=== PATIENT | female | born 1990 | race Caucasian/White ===

== ENCOUNTER 2019-09-29 11:30 | Inpatient (IN) | payer MEDICAID, SELFPAY ==
[2016-10-02 12:30] VITALS: BMI 39.6
[2019-09-29] VITALS (35 sets, daily range): BP systolic 117–184; BP diastolic 56–95; PULSE 66–117; RESP 16; TEMP 36.1–37.3; O2SAT 93–100; BMI 40.5
[2019-09-29] MEDS: proMETHazine 25 MG/ML Syringe 12.5 MG IM (03:23)
[2019-09-29] MEDS: morphine 10 MG/ML Syringe 5 MG IM (03:23)
[2019-09-29] MEDS: Lactated Ringers 1,000 ML 50 ML IV (11:30)
[2019-09-29] MEDS: Lactated Ringers 500 ML 999 ML IV ×2 (11:32→18:09)
[2019-09-29 12:06] LABS: Absolute Lymphocyte Count 2.17 X10^3/uL (0.83-4.51); Absolute Neutrophil Count 13.6 X10^3/uL (2.0-7.7); Basophil# 0.04 X10^3/uL; Basophil% 0.2 % (0-1); Eosinophil# 0.04 X10^3/uL; Eosinophils% 0.2 % (0-5); Hemoglobin 13.2 g/dL (12.0-15.0); Lymphocyte # 2.17 X10^3/ul (4.0); Lymphocyte % 12.9 % (19-41); Mean Corp Hgb Conc 32.2 g/dL (32-36); Mean Corpuscular Hgb 29.2 pg (27.0-32.0); Mean Corpuscular Volume 90.7 fL (81-99); Mean Platelet Vol. 9.8 fl (6.2-12.0); Monocyte# 0.88 X10^3/uL; Monocyte% 5.2 % (0-10); NRBC Flagged by Analyzer 0 % (0-5); Neutrophil # 13.62 X10^3/uL (2.7-7.7); Platelet Count 234 K/mm3 (150-450); RBC Distribution Width SD 46.2 fl (35.1-43.9); Red Blood Count 4.52 M/mm3 (4.2-5.4); White Blood Count 16.8 K/mm3 (4.4-11.0)
[2019-09-29 12:56] LABS: Amphetamine Urine VISTA NEGATIVE (<1000 ng/mL); Barbiturate Urine VISTA NEGATIVE (< 200 ng/mL); Benzodiazepine Urine VISTA NEGATIVE (< 200 ng/mL); Cocaine Urine VISTA NEGATIVE (< 300 ng/mL); Ecstacy Urine VISTA NEGATIVE (< 500 ng/mL); Methadone Urine VISTA NEGATIVE (< 300 ng/mL); PCP Urine VISTA NEGATIVE (< 25 ng/mL); THC Urine VISTA POSITIVE (< 50 ng/mL); Vista UDS pH Range 6
[2019-09-29] MEDS: fentaNYL-bupivacaine (epidural) 100 ML BAG EPIDURAL ×2 (12:58→17:26)
--- NOTE | 2019-09-29 13:14 | HP.PCM_ITS ---
History Date of Admission: 09/29/19 Final MARY: 09/29/19 Gestational age: 40 Weeks and 0 Days History of this : This is a 29 year-old, G [], P [], at 40 weeks gestational age. Allergies No Known Allergies Allergy (Verified 09/29/19 03:09) Home Medications: Home Medications Tablet 1 tab PO DAILY 09/29/19 Zoloft 50 mg PO DAILY 09/29/19 Smoking Status: Light Smoker (<10/day) Substance Use Type: Marijuana Number of Fetus(es): 1 NST - FHR Rate Baby A Baseline: 140 Variability:: Moderate Accelerations:: 15 x 15 NST Reactive:: Yes Uterine Activity:: Q4-5 minutes History Past Pregnancies: Past Pregnancies Delivery Date Name GA/ Weeks Outcome Route Wt Sex Labor Length Anesthesia Delivery Location Provider FOB Labs: See [facility] Physical Exam Vitals: Vital Signs Temp Pulse BP Pulse Ox 98.4 F 94 165/88 H 97 09/29/19 03:53 09/29/19 13:10 09/29/19 13:10 09/29/19 12:48 General: Alert, Oriented x3 Abdomen: Soft, Non Tender, Non-Distended, Gravid Neurological: Cranial nerves II-XII grossly intact FAST FOOD DELIVERY DRIVER: Normal external genitalia Estimated gestational size: Appropriate for gestational size Presentation: Cephalic Cervix Dilation (cm): 5 - AROM clear fluid, FSE & IUPC placed Station: -2 Effacement (%): 90 Assessment/Plan This is a 29 year-old, G1, P0, at 40 weeks gestational age. Admit to L&D COVID testing pending Expectant management GBS negative Pain - comfortable with epidural EFW - less than 4500g, patient with adequate pelvis Routine care
[2019-09-29] MEDS: Oxytocin 30 units/NS 500 ml 30 UNITS/500 ML IV.SOLN IV (15:37)
[2019-09-29] MEDS: Lactated Ringers 1,000 ML 200 ML IV (17:27)
[2019-09-29] MEDS: Ondansetron 4 MG/2 ML Vial IV (19:23)
[2019-09-29] MEDS: Oxytocin 30 units/NS 500 ml 30 UNITS/500 ML IV.SOLN 334 UNITS IV (19:55)
--- NOTE | 2019-09-29 20:15 | PCM.OPRPT ---
Vaginal Delivery Maternal Presentation: Active Labor Amniotic Membrane Rupture Type: Artificial Amniotic Fluid Description: Clear Final MARY: 09/29/19 Gestational age: 40 Weeks and 0 Days Date of Procedure: 09/29/19 Pre-Operative Diagnosis: Labor Post-Operative Diagnosis: Labor Surgery/ Procedure Performed: Spontaneous Vaginal Delivery Type of Anesthesia: Epidural Description of Procedure: Patient prepped & draped in stirrups when c/c/+2. She pushed to deliver the head. head was gently guided to allow delivery of anterior and posterior shoulders. No excess traction placed on the head. Body delivered and placed on maternal abdomen. 3VC clamped & cut in delayed fashion. Placenta delivered with gentle traction. Good uterine tone obtained. Presentation: GE Placental Delivery Description: Spontaneous Placenta Disposition: [facility] Cord Vessel Description: 3 Vessels Cord Entanglement: None Estimated Blood Loss: 350ml Infant A gender: Male - Manny (1 minute): 8 (5 minute): 9 Episiotomy Description: None Laceration: 1st degree - vaginal (bilateral) - repaired with 3-0 vicryl Medications given after delivery: IV Pitocin Complications: None
[2019-09-29] MEDS: 0.9% Saline Lock 10 ML Syringe IV (22:38)
[2019-09-30 00:12] VITALS: BP 137/78; PULSE 106; RESP 16; TEMP 36.2
[2019-09-30 03:07] VITALS: BP 127/72; PULSE 86; RESP 16; TEMP 36.1
[2019-09-30 07:30] VITALS: BP 105/63; PULSE 84; RESP 16; TEMP 36.2
[2019-09-30] MEDS: Ibuprofen 600 MG Tablet PO ×2 (07:50→20:03)
--- NOTE | 2019-09-30 10:22 | PCM.PN.BLA ---
Progress Note Attempted to see patient on unit but patient was off unit outside at this time. STROKE Vital Signs/Narrative: Vital Signs Temp Pulse Resp BP 09/30/19 07:30 97.2 F L 84 16 105/63
[2019-09-30 12:33] VITALS: BP 124/77; PULSE 74; RESP 18; TEMP 36.1; O2SAT 100
[2019-09-30 15:40] VITALS: BP 126/75; PULSE 80; RESP 16; TEMP 36.2; O2SAT 99
--- NOTE | 2019-09-30 16:30 | CASEMGMT ---
Social Work Assessment Labor and Delivery Unit Patient Address: [address] [place] [address] [address], [place] [address] Phone number: [phone] Date of Referral: 09.29.2019 Time of Referral: 2337 Referred By: Dr. Vitale Date of Intervention: 09.30.2019 Time of Intervention: 163 Reason for Referral: maternal use of THC in . History obtained from: medical records and mother of baby (MOB) Angi Naqvi Household composition: MOB lives with reported father of baby (FOB) Ferny Carreno. MOB reports home situation is safe and adequate. MOB plans for baby to return to this home at time of discharge. Patient's parent/guardian status: MOB reports involvement with FOB for a year. MOB denies any form of abuse in this relationship. Report is the first child for both. baby, Manny Carreno, was born on 09.29.2019. Medical History: MOB is G1, P0 to 1 after delivering Manny. MOB reports thought could not have children so was happy when conceived. MOB started care at 9 weeks and then gap in care from 9 to 19 weeks, regular after 19 weeks. Baby born at 40 weeks gestation, 7 pounds 5 ounces, Apgars 8 and 9 at 1 and 5 minutes of life. Educational Status: MOB's highest level of education completed 11th grade, per medical record. No reported issues with reading, writing, or learning comprehension. Financial Status: FOB works fulltime at [employer] and MOB was working at [employer]. MOB reports plan to eventually return to work. At this time finances are reported as adequate. Infant Supplies: MOB reports to have needed supplies including car seat, crib, pack-n-play, clothing, diapers, and wipes. Has a breast pump. Is planning to breastfeed infant. Childcare/Caregiver(s): MOB and then help from FOB and family. Transportation: No issues reported. Programs/Agencies Involved: MOB has WIC and then food and medical through [facility]. MOB denies any other agency involvement. Declines [facility] referrals. Children Services/Legal Issues: None reported. Behavioral Health Issues: Mental Health History: MOB reports history of depression and some anxiety. MOB reports people have thought MOB had bipolar disorder in the past, though not officially diagnoses. MOB reports has history of having high and low moods. MOB denies any history of thoughts, plans, intent or actions related to suicide. No indicates of thoughts of harm to others. MOB reports started counseling with Alina Miller at [facility] in [place] during this , and then started with a psychiatrist for medication as same agency. MOB is currently on Zoloft and reports to feel this is going well. Substance Use History: MOB admits to use of marijuana in . Reports that quite after learning of and then had an argument with the FOB about a month ago. At the time of the argument MOB reports was feeling stressed and used marijuana again. MOB smoked tobacco during . Denies alcohol use in but does drink socially. 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 Denies history of other illicit drug use or abuse. Family History: Reports has had family members complete suicide though did not go into more detail. Reports both her parents, who are in [place], are using meth and have long history of substance use issues cine MOB was a child. Drug Screens: MOB with positive drug screens for marijuana on 03.04.2019 and 08.18.2019. on 09.29.2019 positive for marijuana and opiates. Per discussion with nursing the patient was reportedly given a shot of morphine prior to lab specimen collection. Baby's urine positive for marijuana only. Meconium pending. Family/Social Stressors: Maternal marijuana use in , with baby positive at delivery. MOB reports to be feeling badly due to the baby not having a choice whether to put marijuana into his body, so upset with choices in baby's exposure. Support Systems: MOB reports ANKUR is a good support, ANKUR's uncle's , and then MOB's best girlfriend named Arlin. Depression/Shaken Baby/Safe Sleeping: MOB able to give appropriate responses to shaken baby and safe sleeping. Educated to depression, risk factors and importance of following up with established mental health support. ASSESSMENT: Met with MOB in room. MOB pleasant and cooperative with social work visit. Held appropriate eye contact, appropriate affect. MOB reports to have needed baby supplies for baby and will have adequate help with baby at home going. MOB reports to feel a connection to the baby, smiled at baby when talking about the baby, and gazed at the baby intermittently. MOB did become tearful when topic of substance use occurred. MOB reported plan to abstain from further substance use, plan to stay on antidepressant medications, and also call counselor if feelings of depression arise. MOB educated to need to call children services and that a worker will be making contact with MOB, likely at home. Answered MOB's questions, and offered emotional support. Encouraged abstinence of substances. Safe Plan of Care for related to substance use: Abstain from substances, and should marijuana become and options again in the future would have baby to go the grandmothers' house to be cared for. MOB does report FOB uses marijuana, or has in the past, and has been doing this outside of the home while MOB was . PLAN: MOB and baby to home. Plan to call [facility] Children Services related to substance exposed infant. MOB has been given depression packet and [facility] resource packet for home going. -JASS Polk, CONSULTANTS INTERN
[2019-09-30 21:01] VITALS: BP 113/69; PULSE 75; RESP 16; TEMP 36.4
[2019-09-30] MEDS: Senna/Docusate Sodium 1 Tablet PO (21:07)
[2019-10-01 01:18] VITALS: BP 124/81; PULSE 87; RESP 16; TEMP 36.1
--- NOTE | 2019-10-01 07:49 | PCM.PN.OB ---
Subjective: Patient seen at bedside. Feeling great. Denies pain. Requesting to be discharged home A.S.A.P. Breast and bottle feeding infant without difficulty. Lochia has decreased. - Physical Exam Vitals/I&O's: Vital Signs Temp Pulse Resp BP Pulse Ox 97.0 F L 87 16 124/81 H 99 10/01/19 01:18 10/01/19 01:18 10/01/19 01:18 10/01/19 01:18 09/30/19 15:40 Oxygen Delivery Method Room Air Weight: 236 lb Body Mass Index (BMI) 40.5 Intake and Output for Last 24 Hours 09/29/19 09/30/19 10/01/19 23:59 23:59 23:59 Intake Total 3155.79 / 3155.79 Output Total 850 / 850 Balance 2305.79 / 2305.79 General: Alert, Cooperative Lungs: Normal air movement Cardiovascular: Regular rate Abdomen: Soft, Non Tender, Non-Distended Skin: No rashes Musculoskeletal: No Tenderness to Palpation of Joints or Extremities Neurological: Cranial nerves II-XII grossly intact Psych/Mental Status: Normal Affect, Appropriate Current Medications Acetaminophen (Tylenol) 1,000 mg PO Q8H PRN PRN PRN Reason: Pain Score 1-3/10 Bisacodyl (Dulcolax) 10 mg RECTAL UD PRN PRN Reason: If no BM Dibucaine (Dibucaine) 1 applic TOPICAL TID PRN PRN; Protocol PRN Reason: Discomfort Hydrocortisone (Hytone) 1 applic TOPICAL TID PRN PRN; Protocol PRN Reason: Discomfort Ibuprofen (Motrin) 600 mg PO Q6H PRN PRN PRN Reason: Pain Score 1-3/10 Last Admin: 09/30/19 20:03 Dose: 600 mg Documented by: Methylergonovine Maleate (Methergine) 0.2 mg IM X1 PRN PRN Reason: Excess bleeding/uterine atony Ondansetron HCl (Zofran) 4 mg IV Q4H PRN PRN PRN Reason: Nausea Oxycodone HCl (Oxyir) 5 - 10 mg PO Q4H PRN PRN PRN Reason: Pain Score 4-10/10 Senna/Docusate Sodium (Senokot-S, Macy-Colace) 1 - 2 tablet PO DAILY PRN PRN PRN Reason: Constipation Last Admin: 09/30/19 21:07 Dose: 2 tablet Documented by: Simethicone (Mylicon) 80 mg PO PCHS PRN PRN Reason: Indigestion/Stomach pain Sodium Chloride () 5 - 15 ml IV UD PRN PRN Reason: SALINE FLUSH Last Admin: 09/29/19 22:38 Dose: 10 ml Documented by: Medical Necessity - Tobacco Use Smoking Status: Light Smoker (<10/day) Assessment/Plan PPD #2 Discharge home with no restrictions, patient to follow up in 6 weeks
--- NOTE | 2019-10-01 07:54 | DCINST_ITS ---
Discharge Diet: No Restrictions May resume sexual activity in: 6 weeks Weight Bearing Status: Weight bearing as tolerated Additional Instructions: If you experience any of the following, contact your healthcare provider. * Bleeding that soaks a pad every hour for 2 hours * Fever 100.4 or higher * Unrelieved incision or abdominal pain * Swelling, redness, discharge or bleeding from your incision or episiotomy site * Your incision begins to separate * Problems urinating (including inability to urinate or burning while urinating). * Visual changes * Severe headache * Flu-like symptoms * Pain or redness in one of both of your breasts * Pain, warmth, tenderness or swelling in your legs, especially the calf area * Frequent nausea and vomiting * Symptoms of depression or anxiety If you experience any of the following, call 911 or go to the nearest Emergency Room. * Chest pain * Problems breathing * Seizure activity * Partial or complete paralysis of a body part, slurred speech, weakness or drooping of the face, or a sudden inability to walk or hold your balance Allergies/Adverse Reactions: Allergies No Known Allergies Allergy (Verified 09/29/19 03:09) Medications to take at Discharge Tablet 1 tab PO DAILY 09/29/19 Zoloft 50 mg PO DAILY 09/29/19 When: Follow up in 2 weeks for virtual visit and 6 weeks in office Primary Care Physician: Dariela Barahona NP-C [Primary Care Provider] - Test Results: Test results from this visit will be discussed in further detail at your follow- up appointment, if applicable. Proposed Discharge Date: 10/01/19
--- NOTE | 2019-10-01 07:54 | PCM.DCVAG ---
Discharge Diet: No Restrictions May resume sexual activity in: 6 weeks Weight Bearing Status: Weight bearing as tolerated Additional Instructions: If you experience any of the following, contact your healthcare provider. Bleeding that soaks a pad every hour for 2 hours Fever 100.4 or higher Unrelieved incision or abdominal pain Swelling, redness, discharge or bleeding from your incision or episiotomy site Your incision begins to separate Problems urinating (including inability to urinate or burning while urinating). Visual changes Severe headache Flu-like symptoms Pain or redness in one of both of your breasts Pain, warmth, tenderness or swelling in your legs, especially the calf area Frequent nausea and vomiting Symptoms of depression or anxiety If you experience any of the following, call 911 or go to the nearest Emergency Room. Chest pain Problems breathing Seizure activity Partial or complete paralysis of a body part, slurred speech, weakness or drooping of the face, or a sudden inability to walk or hold your balance Allergies/Adverse Reactions: Allergies No Known Allergies Allergy (Verified 09/29/19 03:09) Medications to take at Discharge Tablet 1 tab PO DAILY 09/29/19 Zoloft 50 mg PO DAILY 09/29/19 When: Follow up in 2 weeks for virtual visit and 6 weeks in office Primary Care Physician: Dariela Barahona NP-C [Primary Care Provider] - Test Results: Test results from this visit will be discussed in further detail at your follow-up appointment, if applicable. Proposed Discharge Date: 10/01/19
[2019-10-01 08:00] VITALS: BP 136/82; PULSE 85; RESP 18; TEMP 36.5; O2SAT 100
[2019-10-01 08:47] VITALS: BP 136/82; PULSE 85; RESP 18; TEMP 36.5; O2SAT 100
--- NOTE | 2019-10-01 15:24 | CASEMGMT ---
Social Work Labor and Delivery Unit 0830 -Per nursing, MOB and baby for discharge today. No voiced concerns related to mother/child bonding or interactions. 1120 - Called [facility] today and and spoke with recreation facilities supervisor, Lety Collado. Referral due to substance exposed infant and positive drug screen for baby after delivery. Brief maternal and histories provided. Additional concerns and/or risk factors included maternal history of other substance use, mental health history and gap in care. Updated that MOB and baby are discharged today. Plan: MOB and baby to home. Children services will be following up with family in the community. MOB was given community resource lists and information on depression earlier in hospital stay. No further services requested or indicted. -BENIGNO Polk, CORN LAB TECHNICIAN
== END 2019-10-01 09:15 | disposition home or self-care (01) | DRG 560 ==
LOC: OBT 11:46 → WP 11:46
PROVIDERS: Admitting Provider Obstetrics & Gynecology; PCP Nurse Practitioner Primary Care; Referring Provider Obstetrics & Gynecology; Visit Provider Obstetrics & Gynecology
DX: O48.0 Post-term pregnancy (principal); Z3A.40 40 weeks gestation of pregnancy; O99.323 Drug use complicating pregnancy, third trimester; F12.90 Cannabis use, unspecified, uncomplicated; Z37.0 Single live birth; O99.334 Smoking (tobacco) complicating childbirth; O70.0 First degree perineal laceration during delivery; F17.210 Nicotine dependence, cigarettes, uncomplicated
CPT/HCPCS: 59025; 59050; 80307; 85025; 86850; 86900; 86901; 87635; 96372; 99218; G2023; J7120; A4216; G0378; J2405; U0003

== ENCOUNTER 2024-01-28 11:40 | Inpatient (IN) | payer MEDICAID, SELFPAY ==
[2024-01-28] VITALS (29 sets, daily range): BP systolic 110–151; BP diastolic 56–80; PULSE 65–183; RESP 14–16; TEMP 36.6; O2SAT 85–100; BMI 40.0
[2024-01-28] MEDS: Lactated Ringers 1,000 ML 50 ML IV ×2 (11:50→17:24)
[2024-01-28] MEDS: LACTATED RINGERS 500 ML 999 ML IV (12:30)
[2024-01-28] MEDS: Penicillin G Pot 5,000,000 UNITS in 0.9% Normal Saline (100mL MB+) 100 ML 150 UNITS IV (12:31)
[2024-01-28 12:52] LABS: Absolute Lymphocyte Count 2.45 X10^3/uL (0.83-4.51); Absolute Neutrophil Count 10.6 X10^3/uL (2.0-7.7); Basophil# 0.05 X10^3/uL; Basophil% 0.4 % (0-1); Eosinophil# 0.06 X10^3/uL; Eosinophils% 0.4 % (0-5); Hematocrit 37.5 % (37-47); Hemoglobin 12.1 g/dL (12.0-15.0); Lymphocyte # 2.45 X10^3/ul (0.83-4.51); Lymphocyte % 17.7 % (19-41); Mean Corp Hgb Conc 32.3 g/dL (32-36); Mean Corpuscular Hgb 28.7 pg (27.0-32.0); Mean Corpuscular Volume 88.9 fL (81-99); Mean Platelet Vol. 9.8 fl (6.2-12.0); Monocyte# 0.64 X10^3/uL; Monocyte% 4.6 % (0-10); NRBC Flagged by Analyzer 0 % (0-5); Neutrophil # 10.56 X10^3/uL (2.7-7.7); Neutrophil % 76.5 % (47-70); Platelet Count 237 K/mm3 (150-450); RBC Distribution Width CV 13.6 % (11.6-14.6); RBC Distribution Width SD 44.1 fl (35.1-43.9); Red Blood Count 4.22 M/mm3 (4.2-5.4); White Blood Count 13.8 K/mm3 (4.4-11.0)
[2024-01-28 12:53] LABS: Amphetamine Urine VISTA NEGATIVE (<1000 ng/mL); Barbiturate Urine VISTA NEGATIVE (< 200 ng/mL); Benzodiazepine Urine VISTA NEGATIVE (< 200 ng/mL); Cocaine Urine VISTA NEGATIVE (< 300 ng/mL); Ecstacy Urine VISTA NEGATIVE (< 500 ng/mL); Methadone Urine VISTA NEGATIVE (< 300 ng/mL); PCP Urine VISTA NEGATIVE (< 25 ng/mL); THC Urine VISTA POSITIVE (< 50 ng/mL); Vista UDS pH Range 6
[2024-01-28] MEDS: Oxytocin 15 Units/NS 250ml 15 UNITS/250 ML IV.SOLN 2 UNITS IV (13:30)
--- NOTE | 2024-01-28 13:35 | PCM.HP.OB ---
HPI - General General Date of Admission: 01/28/24 HPI Narrative ESTEFANY GARCIA, is a 34 F who presents [facility] Medical History Chlamydia Genital herpes affecting Infertility Depression Home Medications ?Medication ?Instructions ?Recorded ?Last Taken ?Type Tablet 1 tab PO DAILY Check with primary 09/29/19 09/25/19 09:00 History doctor acyclovir 400 mg tablet 400 mg PO TID genital herpes 01/28/24 01/28/24 History Allergy/AdvReac Type Severity Reaction Status Date / Time No Known Allergies Allergy Verified 01/28/24 12:43 Surgical History History of dental surgery [place] teeth extracted Social History Smoking Status: Current every day smoker History Elective abortions Hx Para 1 Spontaneous abortions Hx # Term Pregnancies Ectopic pregnancies Hx # Pregnancies Multiple births # of living children NST FHR Rate Baby A Baseline: 135 Variability:: Moderate Accelerations:: 15 x 15 Decelerations:: Variable (s/p late decelerations that have now resolved) Uterine Activity:: Irregular Vital Signs Vital Signs Vital Signs: 01/28/24 11:38 01/28/24 11:38 01/28/24 11:41 Pulse Rate 93 107 H Blood Pressure 134/77 H BP Systolic 134 BP Diastolic 77 Pulse Ox 01/28/24 11:41 01/28/24 11:54 01/28/24 11:54 Pulse Rate 92 Blood Pressure 123/74 H BP Systolic 123 BP Diastolic 74 Pulse Ox 98 01/28/24 12:09 01/28/24 12:09 01/28/24 12:24 Pulse Rate 100 Blood Pressure 120/70 123/63 H BP Systolic 120 123 BP Diastolic 70 63 Pulse Ox 01/28/24 12:24 01/28/24 12:39 01/28/24 12:39 Pulse Rate 92 93 Blood Pressure 110/63 BP Systolic 110 BP Diastolic 63 Pulse Ox 01/28/24 12:54 01/28/24 12:54 Pulse Rate 86 Blood Pressure 114/59 L BP Systolic 114 BP Diastolic 59 Pulse Ox Weight Weight: 233 lb 6 oz Body Mass Index (BMI) 40.0 Physical Exam Const alert and oriented x3 Chest inspection of chest normal Resp normal respiratory effort GI soft to palpation, non-tender and non-distended Inspection: gravid external exam normal Narrative: cvx - 2/60/-3, AROM clear fluid Labs Labs Labs: Blood Type B POSITIVE Antibody Screen NEGATIVE Hct 37.5 % (37-47) Hgb 12.1 g/dL (12.0-15.0) Syphilis Total Ab Pending Rhogam given: No Assessment & Plan (1) Non-reassuring electronic monitoring tracing: (2) 38 weeks gestation of : PLAN: Plan Admit to L&D Induction - patient with 2 late decelerations and minimal variability on office NST. Discussed R/B/A of options and patient elected to proceed with induction of labor for NRFHT. Patient is now s/p AROM and on pitocin as heart tracing has been reassuring here at [facility]. GBS positive - pcn per protocol. EFW - less than 4500g & patient with adequate pelvis. Pain - epidural as desired.
[2024-01-28] MEDS: fentaNYL-bupivacaine (epidural) 100 ML BAG EPIDURAL (17:13)
[2024-01-28] MEDS: Penicillin G 3,000,000 Units 50 ML 100 UNITS IV (17:30)
[2024-01-28] MEDS: Oxytocin 15 Units/NS 250ml 15 UNITS/250 ML IV.SOLN 334 UNITS IV (20:27)
--- NOTE | 2024-01-28 20:39 | EX.PCM.OBRPT ---
Maternal Data Information Final MARY: 02/11/24 Gestational age: 38 weeks Vaginal Delivery Maternal Presentation Maternal Presentation: Medically Indicated Induction Type of Induction: Pitocin and Amniotomy Operative Information Date of Procedure: 01/28/24 Pre-Operative Diagnosis: (1) Non reassuring heart tracing Post-Operative Diagnosis: Same Surgery / Procedure Performed: Spontaneous Vaginal Delivery Type of Anesthesia: Epidural Drain: [place] to straight drain Estimated Blood Loss: 200ml Findings Description of Procedure: Patient prepped & draped when C/C/+2. She pushed well to deliver the head. head gently guided to allow delivery of anterior and posterior shoulders. No excess traction placed on head. Body delivered and 3VC clamped & cut in delayed fashion. Placenta delivered with gentle traction and good uterine tone obtained. Presentation: GE Amniotic Membrane Rupture Type: Artificial Amniotic Fluid Description: Clear Placental Delivery Description: Expressed Placenta Disposition: [facility] Specimen(s) Removed: Placenta Cord Vessel Description: 3 Vessels Cord Entanglement: None A Gender: Male (1 minute): 6 (5 minute): 8 Delayed Cord Clamping: Yes Post Vaginal Delivery Medications Given After Delivery: IV Pitocin Episiotomy Description: None Laceration: None Complication Complications: None
[2024-01-28] MEDS: Oxytocin 15 Units/NS 250ml 15 UNITS/250 ML IV.SOLN 83 UNITS IV (21:01)
[2024-01-29] VITALS: BP 124/71; PULSE 72; RESP 16; TEMP 36.6; O2SAT 95
[2024-01-29 03:17] VITALS: BP 118/71; PULSE 72; RESP 16; TEMP 36.3; O2SAT 99
[2024-01-29] MEDS: Ibuprofen 600 MG Tablet PO (07:38)
[2024-01-29 07:54] VITALS: BP 115/72; PULSE 70; RESP 16; TEMP 36.3; O2SAT 100
--- NOTE | 2024-01-29 08:25 | PCM.PROGNOTE ---
Subjective Subjective patient seen at bedside, doing well. Patient reports good pain control. lochia mild. Bottle feeding. Objective Data Objective Data Vital Signs: Vital Signs Temp Pulse Resp BP Pulse Ox O2 Del Method 97.4 F L 70 16 115/72 100 Room Air 01/29/24 07:54 01/29/24 07:54 01/29/24 07:54 01/29/24 07:54 01/29/24 07:54 01/29/24 07:54 Oxygen Delivery Method Room Air Weight: 105.857 kg Body Mass Index (BMI) 40.0 Intake & Output: Intake and Output for Last 24 Hours 01/27/24 01/28/24 01/29/24 23:59 23:59 23:59 Intake Total 1129.40 / 1129.40 250 / 250 Output Total 300 / 700 400 / 400 Balance 829.40 / 429.40 -150 / -150 Lab / Micro Data 01/28/24 11:50 Labs: Laboratory Results - last 24 hr 01/28/24 11:50: WBC 13.8 H, RBC 4.22, Hgb 12.1, Hct 37.5, MCV 88.9, MCH 28.7, MCHC 32.3, RDW Std Deviation 44.1 H, RDW Coeff of Karla 13.6, Plt Count 237, MPV 9.8, Immature Gran % (Auto) 0.400, Neut % (Auto) 76.5 H, Lymph % (Auto) 17.7 L, Oliver % (Auto) 4.6, Eos % (Auto) 0.4, Baso % (Auto) 0.4, Absolute Neuts (auto) 10.6 H, Absolute Lymphs (auto) 2.45, Nucleated RBC % 0, Urine Opiates Screen NEGATIVE, Urine Methadone Screen NEGATIVE, Ur Barbiturates Screen NEGATIVE, Ur Phencyclidine Scrn NEGATIVE, Ur Amphetamines Screen NEGATIVE, MDMA (Ecstasy) Screen NEGATIVE, U Benzodiazepines Scrn NEGATIVE, Urine Cocaine Screen NEGATIVE, U Cannabinoids Screen POSITIVE H, Ur Drug Screen Comment , Blood Type B POSITIVE, Antibody Screen NEGATIVE Physical Exam Const alert and oriented x3 General Appearance: cooperative HEENT normocephalic Neck General: normal visual inspection GI soft to palpation and non-distended GI Narrative: Fundus firm Extremity normal to inspection and no calf tenderness Skin no rashes or lesions noted Neuro oriented x3 and CN's II-XII intact bilaterally Psych mental status grossly normal Assessment & Plan Assessment/Plan (1) Vaginal delivery: PLAN: Plan PPD# 1 , Doing well Routine care pain mgmt ambulation
[2024-01-29 11:56] VITALS: BP 127/87; PULSE 96; RESP 18; TEMP 36.4; O2SAT 98
[2024-01-29 16:30] VITALS: BP 110/56; PULSE 74; RESP 16; TEMP 36.6; O2SAT 99
--- NOTE | 2024-01-29 21:33 | NURSING ---
Pt to be discharged. Verbal order given from that pt is able to have a follow up phone call with social work.
[2024-01-29 21:57] VITALS: BP 133/75; PULSE 97; RESP 16; TEMP 36.7; O2SAT 98
== END 2024-01-29 22:46 | disposition home or self-care (01) | DRG 560 ==
PROVIDERS: Admitting Provider Obstetrics & Gynecology; PCP Nurse Practitioner Primary Care; Referring Provider Obstetrics & Gynecology; Visit Provider Obstetrics & Gynecology
DX: O76 Abnormality in fetal heart rate and rhythm complicating labor and delivery (principal); Z37.0 Single live birth; F17.200 Nicotine dependence, unspecified, uncomplicated; O99.820 Streptococcus B carrier state complicating pregnancy; Z3A.38 38 weeks gestation of pregnancy; O99.334 Smoking (tobacco) complicating childbirth
CPT/HCPCS: 59025; 59050; 80307; 85025; 86780; 86850; 86900; 86901; 99221; J7120; G0378

== ENCOUNTER 2024-09-03 10:10 | Day surgery (SDC) | payer MEDICAID, SELFPAY ==
--- NOTE | 2024-09-02 16:53 | PCM.HP.BLA ---
History and Physical Date of Admission: 09/03/24 Expand All Collapse All Pre-Op History and Physical HPI: The patient is a 34 year old female presenting for pre-operative visit. She is scheduled for LEEP, laparoscopic bilateral salpingectomy, for cervical dysplasia and desires sterilization on 09/03/24. Procedure discussed along with risks, benefits and complications. Other alternatives discussed for management. Consent form signed? Yes. PAST MEDICAL HISTORY PAST MEDICAL HISTORY Diagnosis Date ? Chronic knee pain ? depression ? HSIL (high grade squamous intraepithelial lesion) on Pap smear of cervix 03/20/2024 ? HSV-1 (herpes simplex virus 1) infection ? HSV-2 (herpes simplex virus 2) infection ? Infertility, female ? Tobacco abuse PAST SURGICAL HISTORY PAST SURGICAL HISTORY Procedure Laterality Date ? PAST SURGICAL HISTORY OF wisdom teeth ? PAST SURGICAL HISTORY OF upper teeth extraction CURRENT MEDICATIONS Current Outpatient Medications Medication Sig Dispense Refill ? medroxyPROGESTERone (DEPO-PROVERA) 150 mg/mL Inject 1 mL intramuscularly every 12 weeks. 1 Each 3 ? acetaminophen (TYLENOL 8 HOUR ORAL) Take by mouth as needed. ? acyclovir (ZOVIRAX) 400 mg tablet Take 1 tablet by mouth three times a day. (Patient not taking: Reported on 03/10/2024) 90 tablet 4 ? PNV24/Iron Cbn&Gluc/FA/DSS/Dha (PRENATE ORAL) Take by mouth once daily. No current facility-administered medications for this visit. ALLERGIES: Patient has no known allergies. PERSONAL HISTORY: SOCIAL HISTORY Social History Tobacco Use ? Smoking status: Every Day Current packs/day: 0.50 Average packs/day: 0.5 packs/day for 17.0 years (8.5 ttl pk-yrs) Types: Cigarettes ? Smokeless tobacco: Never Vaping Use ? Vaping status: Some Days ? Substances: THC, Flavoring Substance Use Topics ? Alcohol use: Not Currently ? Drug use: Yes Types: Marijuana Comment: smoking vapes FAMILY HISTORY: FAMILY HISTORY FAMILY HISTORY Problem Relation Age of Onset ? Hypertension Mother ? Diabetes Father ? Hypertension Father ? No Known Problems Sister ? No Known Problems Brother ? No Known Problems Brother ? No Known Problems Brother ? Diabetes Maternal Grandmother ? Hypertension Maternal Grandmother ? No Known Problems Maternal Grandfather ? No Known Problems Paternal Grandmother ? other (Black lung disase) Paternal Grandfather REVIEW OF SYMPTOMS: negative except as noted above PHYSICAL EXAMINATION: VITALS: Last menstrual period 05/07/2023, not currently . GENERAL: The patient is well nourished, well hydrated in no acute distress. , The patient is oriented to time, place, and person. NECK: full range of motion LUNGS: Clear to auscultation bilaterally. no wheezes, rhonchi or rales HEART: Regular rate and rhythm, Normal heart sounds, and No murmurs or gallops IMPRESSION: cervical dysplasia and desires sterilization PLAN: laparoscopic bilateral salpingectomy, LEEP procedure Pt has been counseled on risks/benefits and alternatives of surgery including but not limited to anesthesia, bleeding, infection, injury to pelvic structures including bowel, bladder, ureters and vessels. Pt wishes to proceed with surgery at this time. Pt understands this is not reversible and other forms of reversible contraception are available. Title 19 signed previously 08/04/24 Pre op CBC and urine ordered at [facility] Pre and post op instructions reviewed I have reviewed and updated past medical and surgical history, medications and allergies Sana Chandler MD Office Visit on 09/01/2024 Note shared with patient
[2024-09-03] VITALS (11 sets, daily range): BP systolic 130–152; BP diastolic 78–89; PULSE 72–101; RESP 16–18; TEMP 36.1–36.7; O2SAT 90–98; BMI 42.3
--- NOTE | 2024-09-03 10:26 | PCM.PRE.AN2 ---
ASA Classification* ASA Classification ASA Classification: 2 Assessment & Plan Anesthesia* Anesthesia Assessment Anesthesia Assessment: Discussed sedation and/or anesthesia options, risks, benefits, and alternatives with patient/parents/legal guardian/POA. Questions invited. The patient/parents/legal guardian/POA seems to understand and agrees to proceed with anesthesia plan. Reviewed the physical assessment, medical history, allergy history and patient home medications list prior to surgery/procedure/anesthetic and documented any changes. Performed airway and anesthesia risk assessments. Anesthesia Type Anesthesia Type: General Anesthesia Focused Assessment* Airway Assessment Mouth opens: >3 cm Mallampati Score: II Focused Labs Anesthesia Preop lab: CBC WBC 13.8 K/mm3 (4.4-11.0) H 01/28/24 11:50 01/28/24 RBC 4.22 M/mm3 (4.2-5.4) 01/28/24 11:50 01/28/24 Hgb 12.1 g/dL (12.0-15.0) 01/28/24 11:50 01/28/24 Hct 37.5 % (37-47) 01/28/24 11:50 01/28/24 Plt Count 237 K/mm3 (150-450) 01/28/24 11:50 01/28/24 CHEMISTRY COAG Pre-Assessment Diagnosis/Proposed Procedure Planned Operative Procedure(s): (B) Laparoscopic, bilateral Salpingectomy, LEEP (N/A) Leep Cone Anesthesia History Anesthesia History - placement specialist: Anesthesia History - placement specialist Hx Hospitalization Yes: CHILDBIRTH 09/01/24 14:11 Any Problems With Anesthesia No 09/01/24 14:11 Cholinesterase deficiency No 09/01/24 14:11 You/Your Family Experience No 09/01/24 14:11 fever (hyperthermia) with Relationship Recent Exposure to Contagious Disease Does patient have nerve No 09/01/24 14:11 stimulator Patient instructed to have device shut off --Does patient have Pacemaker or ICD? When Was Last Pacemaker Check QUESTION #4 FULL TEXT: You/Your Family Experience fever (hyperthermia) with Anesthesia Last Oral Intake Last Oral intake: Last Oral Intake NPO since Meds taken in AM with sips of water? Meds patient instructed to take am of surgery PONV PONV - placement specialist: PONV - placement specialist Female Yes 09/01/24 14:11 HX of Motion Sickness No 09/01/24 14:11 HX of N/V After Surgery No 09/01/24 14:11 Non-Smoker No 09/01/24 14:11 Duration of Surgery greater No 09/01/24 14:11 than 60 minutes Number of Risk Factors 1 09/01/24 14:11 PONV Score Low Risk 09/01/24 14:11 Height & Weight Height & Weight: Anesthesia: Height & Weight Height 5 ft 4 in 01/28/24 11:43 Respiratory Assessment Respiratory Assessment - placement specialist: Respiratory Tract Infection Hx - placement specialist Hx Respiratory Tract Infection No 09/01/24 14:11 STOP Sleep Apnea STOP Sleep Apnea - placement specialist: STOP Sleep Apnea - placement specialist Hx Hypertension No 09/01/24 14:11 Hx Sleep Apnea No 09/01/24 14:11 CPAP BIPAP Do you snore loudly (louder No 09/01/24 14:11 than talking or can be heard Do you often feel tired/ No 09/01/24 14:11 fatigued/ sleepy during daytime? Has anyone observed you stop No 09/01/24 14:11 breathing during sleep? STOP Results Negative 09/01/24 14:11 QUESTION #5 FULL TEXT : Do you snore loudly (louder than talking or can be heard through closed doors)? Tobacco Use History Tobacco Use History - placement specialist: Tobacco Use History - placement specialist Tobacco Use Smoking Status Current every day smoker 09/01/24 14:11 Hx Tobacco Use Yes 09/01/24 14:11 Years Smoking Packs Smoked per Day Smoking Cessation Date was within the last 15 years Hx Smoking Cessation Date Hx Smoking Cessation Counseling Hematologic Medial History Hematologic Hx - placement specialist: Hematologic Medical Hx - internet sales representative Hx of Blood Transfusion No 09/01/24 14:11 Hx of Transfusion in last 3 No 09/01/24 14:11 Months Date of Last Transfusion (if within last 3 months) Ever experience any problems No 09/01/24 14:11 with transfusion(s)? Specify any problems Hx of Preganancy in last 3 No 09/01/24 14:11 Months Nurse Filling Out Transfusion [facility] 09/01/24 14:11 & Questions: Date: 09/01/24 09/01/24 14:11 Time: 14:12 09/01/24 14:11 Patient unable to answer at this time (ie. confused, unrespo /Reproduction History /Reproductive History - placement specialist: /Reproductive Hx- placement specialist Hx Now No 09/01/24 14:11 Gestational Age (in weeks): EDC: Hx Hx Para Hx Section SAB No 09/01/24 14:11 [facility] Medical History Wears dentures Wears glasses Bipolar disorder Anxiety Marijuana use Alcohol use Hx of blood diseases Easy bruising Smoker Chlamydia Genital herpes affecting Infertility Depression Home Medications ?Medication ?Instructions ?Recorded ?Last Taken ?Type Tablet 1 tab PO DAILY Check with primary 09/29/19 09/25/19 09:00 History doctor acyclovir 400 mg tablet 400 mg PO TID genital herpes 01/28/24 01/28/24 History Allergy/AdvReac Type Severity Reaction Status Date / Time No Known Allergies Allergy Verified 09/01/24 14:09 Surgical History History of dental surgery [place] teeth extracted Social History Smoking Status: Current every day smoker tobacco type: cigarettes Review of Systems (Anesthesia) ROS Narrative System reviewed and no additional complaints, except as documented.
[2024-09-03] MEDS: Lactated Ringers 1,000 ML 15 ML IV (10:45)
[2024-09-03 10:51] LABS: Hemoglobin 12.8 g/dL (12.0-15.0); Mean Corp Hgb Conc 31.2 g/dL (32-36); Mean Corpuscular Hgb 26.3 pg (27.0-32.0); Mean Corpuscular Volume 84.2 fL (81-99); Mean Platelet Vol. 8.7 fl (6.2-12.0); Platelet Count 297 K/mm3 (150-450); RBC Distribution Width CV 15.9 % (11.6-14.6); RBC Distribution Width SD 48.7 fl (35.1-43.9); Red Blood Count 4.87 M/mm3 (4.2-5.4); White Blood Count 10.7 K/mm3 (4.4-11.0)
--- NOTE | 2024-09-03 10:57 | PCM.PRE.AN2 ---
ASA Classification* ASA Classification ASA Classification: 3 Assessment & Plan Anesthesia* Anesthesia Assessment Anesthesia Assessment: Discussed sedation and/or anesthesia options, risks, benefits, and alternatives with patient/parents/legal guardian/POA. Questions invited. The patient/parents/legal guardian/POA seems to understand and agrees to proceed with anesthesia plan. Reviewed the physical assessment, medical history, allergy history and patient home medications list prior to surgery/procedure/anesthetic and documented any changes. Performed airway and anesthesia risk assessments. Anesthesia Type Anesthesia Type: General Anesthesia Focused Assessment* Temperature: 97.9 F Pulse Rate: 87 Blood Pressure: 130/87 Respiratory Rate: 17 Pulse Ox: 98 Airway Assessment Mouth opens: >3 cm Mallampati Score: II Focused Labs Anesthesia Preop lab: CBC WBC 10.7 K/mm3 (4.4-11.0) 09/03/24 10:30 09/03/24 RBC 4.87 M/mm3 (4.2-5.4) 09/03/24 10:30 09/03/24 Hgb 12.8 g/dL (12.0-15.0) 09/03/24 10:30 09/03/24 Hct 41.0 % (37-47) 09/03/24 10:30 09/03/24 Plt Count 297 K/mm3 (150-450) 09/03/24 10:30 09/03/24 CHEMISTRY COAG Urine Test Pending 09/03/24 10:30 09/03/24 Pre-Assessment Diagnosis/Proposed Procedure Planned Operative Procedure(s): (B) Laparoscopic, bilateral Salpingectomy, LEEP (N/A) Leep Cone Anesthesia History Anesthesia History - speech lang path therapist: Anesthesia History - speech lang path therapist Hx Hospitalization Yes: CHILDBIRTH 09/01/24 14:11 Any Problems With Anesthesia No 09/01/24 14:11 Cholinesterase deficiency No 09/01/24 14:11 You/Your Family Experience No 09/01/24 14:11 fever (hyperthermia) with Relationship Recent Exposure to Contagious No 09/03/24 10:41 Disease Does patient have nerve No 09/01/24 14:11 stimulator Patient instructed to have device shut off --Does patient have Pacemaker No 09/03/24 10:41 or ICD? When Was Last Pacemaker Check QUESTION #4 FULL TEXT: You/Your Family Experience fever (hyperthermia) with Anesthesia Last Oral Intake Last Oral intake: Last Oral Intake NPO since 00:00 09/03/24 10:41 Meds taken in AM with sips of No 09/03/24 10:41 water? Meds patient instructed to take am of surgery PONV PONV - speech lang path therapist: PONV - speech lang path therapist Female Yes 09/01/24 14:11 HX of Motion Sickness No 09/01/24 14:11 HX of N/V After Surgery No 09/01/24 14:11 Non-Smoker No 09/01/24 14:11 Duration of Surgery greater No 09/01/24 14:11 than 60 minutes Number of Risk Factors 1 09/01/24 14:11 PONV Score Low Risk 09/01/24 14:11 Height & Weight Height & Weight: Anesthesia: Height & Weight Height 5 ft 4 in 09/03/24 10:41 Weight: 111.9 kg 09/03/24 10:41 Body Mass Index (BMI) 42.3 09/03/24 10:41 Respiratory Assessment Respiratory Assessment - speech lang path therapist: Respiratory Tract Infection Hx - speech lang path therapist Hx Respiratory Tract Infection No 09/01/24 14:11 STOP Sleep Apnea STOP Sleep Apnea - speech lang path therapist: STOP Sleep Apnea - speech lang path therapist Hx Hypertension No 09/01/24 14:11 Hx Sleep Apnea No 09/01/24 14:11 CPAP BIPAP Do you snore loudly (louder No 09/01/24 14:11 than talking or can be heard Do you often feel tired/ No 09/01/24 14:11 fatigued/ sleepy during daytime? Has anyone observed you stop No 09/01/24 14:11 breathing during sleep? STOP Results Negative 09/01/24 14:11 QUESTION #5 FULL TEXT : Do you snore loudly (louder than talking or can be heard through closed doors)? Tobacco Use History Tobacco Use History - speech lang path therapist: Tobacco Use History - speech lang path therapist Tobacco Use Smoking Status Current every day smoker 09/01/24 14:11 Hx Tobacco Use Yes 09/01/24 14:11 Years Smoking Packs Smoked per Day Smoking Cessation Date was within the last 15 years Hx Smoking Cessation Date Hx Smoking Cessation Counseling Hematologic Medial History Hematologic Hx - speech lang path therapist: Hematologic Medical Hx - seo professional Hx of Blood Transfusion No 09/01/24 14:11 Hx of Transfusion in last 3 No 09/01/24 14:11 Months Date of Last Transfusion (if within last 3 months) Ever experience any problems No 09/01/24 14:11 with transfusion(s)? Specify any problems Hx of Preganancy in last 3 No 09/01/24 14:11 Months Nurse Filling Out Transfusion [facility] 09/01/24 14:11 & Questions: Date: 09/01/24 09/01/24 14:11 Time: 14:12 09/01/24 14:11 Patient unable to answer at this time (ie. confused, unrespo /Reproduction History /Reproductive History - speech lang path therapist: /Reproductive Hx- speech lang path therapist Hx Now No 09/01/24 14:11 Gestational Age (in weeks): EDC: Hx Hx Para Hx Section SAB No 09/01/24 14:11 Active Medications Active Medications: Current Medications Generic Name Dose Route Start Last Admin Trade Name Freq PRN Reason Stop Dose Admin Lactated Ringer's 1,000 mls @ 15 mls/hr 09/03/24 10:45 09/03/24 10:45 IV 15 mls/hr .Q48H AMANDA Administration PFSH Medical History Wears dentures Wears glasses Bipolar disorder Anxiety Marijuana use Alcohol use Hx of blood diseases Easy bruising Smoker Chlamydia Genital herpes affecting Infertility Depression Home Medications ?Medication ?Instructions ?Recorded ?Last Taken ?Type Tablet 1 tab PO DAILY Check with primary 09/29/19 09/02/24 History doctor acyclovir 400 mg tablet 400 mg PO TID genital herpes 01/28/24 01/28/24 History Allergy/AdvReac Type Severity Reaction Status Date / Time No Known Allergies Allergy Verified 09/03/24 10:40 Surgical History History of dental surgery [place] teeth extracted Social History Smoking Status: Current every day smoker tobacco type: cigarettes Review of Systems (Anesthesia) ROS Narrative System reviewed and no additional complaints, except as documented.
[2024-09-03 11:12] LABS: Internal QC Validated? YES +Cl - CLEAR BKGD; Pregnancy, Urine Negative Negative
--- NOTE | 2024-09-03 11:44 | DCINST_ITS ---
Discharge Instructions DC O2, CPAP, BIPAP needs Home O2 Discharge instructions: No Dressing / Incision May resume sexual activity in: 2 weeks Lifting Restrictions: 20-25 lbs Dressing / Incision Call your doctor if your incision/area has: Continuous Slow Oozing, Sudden Increased Bleeding, Increased Pain/ Swelling, Increased Redness, Foul Smelling Discharge and Swelling at the incision site Call your doctor if you observe: Fever of 101 or Higher, Inability to urinate, Inability to have a bowel movement, Using more than 1 pad per hour and Uncontrolled pain Additional Dressing/Incision Instructions:: You have skin glue over your incision sites, do not pick off. You may shower and let the soap and water run over the incision sites and dab dry. Follow Up Care Please Follow Up With: Sana Jones MD When: I will call you with pathology results in 1-2 weeks, if you need an appointment to be seen please call [phone] Test Results: Test results from this visit will be discussed in further detail at your follow- up appointment, if applicable. Discharge Plan Admission Attending Provider: Sana Jones Primary Care Provider: Care Physician,Rossi Primary Instructions Print Language: [place] Citizen Discharge Orders/Prescriptions Prescriptions: No Action Tablet 1 tab PO DAILY acyclovir 400 mg tablet 400 mg PO TID Referrals / Follow Up: Care Physician,Rossi Primary [Primary Care Provider] - Disposition Disposition (needs filled in before D/C Order can be placed): Home, Self Care
--- NOTE | 2024-09-03 11:55 | UTC_PTH ---
PATIENT: ESTEFANY GARCIA LOC: [facility] [place] U[place][id number] AGE/SX: 34/F ROOM: RE09/03/[address]: Dr. Sana Jones, MDDOB: 1990 BED: DIS: 09/03/2024 SPEC #: [id number] RECD: 09/03/24 13:42 STATUS: MIHIR ANJUM #: [id number] JASE: 09/03/24 11:[address]: Sana Jones DEPT: SURGICAL PATHOLOGY RECD BY: Ruperto Barnes ENTERED: 09/03/24 13:58 SP TYPE: LAUREL PIMENTEL DR: Rossi Primary Care Phys Tissues: A - UTERINE CERVIX LEEP B - Endocervical C - Fallopian tube Procedures: Surgery Specimen Level II Surgery Specimen Level IV Surgery Specimen Level V HEADER OPERATION: Laparoscopic, bilateral salpingectomy, LEEP PRE-OP DIAGNOSIS: Cervical dysplasia and desires sterlization TISSUE SUBMITTED: A- Cervical LEEP *cut at 12o'clock*, B- Endocervical curettings, C- Bilateral fallopian tubes MICROSCOPIC DIAGNOSIS A. Cervix, dysplasia, LEEP biopsy: * High grade VETO (severe dysplasia, VINOD 3) focally involving the endocervical surgical margin - see note. * Note: Assessment of the endocervical surgical margin is hampered by cautery artifact. Moderate to severe dysplasia closely approaches and appears to involve the endocervical surgical margin in the smaller tissue fragment. B. Endocervix, curettage: * Benign endocervical tissue. * No dysplasia is observed in these sections. C. Bilateral fallopian tubes, bilateral salpingectomy: * Complete luminal cross-section confirmed x2. MICROSCOPIC DESCRIPTION Slides are reviewed. GROSS DESCRIPTION A. Received in formalin in a container labeled with the patient's name, date of , and cervical LEEP cut 12:00 are 2 henderson-pink fragments of rubbery soft tissue measuring 1.3 x 1.2 x 0.6 cm and 2.9 x 1.1 x 0.8 cm. No orientation is able to be determined. The largest exhibits a white-pink, smooth probable ectocervix with a 0.9 x 0.8 cm area of red-henderson granularity. Due to the disrupted nature, a distinct cervical os is not grossly appreciated. The opposing surface is roughened and cauterized, consistent with resection margin, and inked blue. Serial sections reveal henderson-pink and rubbery surfaces. The smaller fragment exhibits a white-henderson, smooth, and glistening ectocervix with no distinct os identified. The opposing probable resection margin is inked black, and sectioning reveals henderson-pink and rubbery surfaces. The specimen is submitted entirely as follows:A1-3. Larger fragmentA4. Smaller fragment B. Received in formalin in a container labeled with the patient's name, date of , and endocervical curetting are multiple small henderson-pink fragments of soft tissue admixed with blood and mucus measuring 1.0 x 0.8 x 0.3 cm in aggregate. Submitted in toto in B1. C. Received in formalin in a container labeled with the patient's name, date of , and bilateral tubes are 2 unoriented and fimbriated fallopian tube segments. The longer segment is 4.5 cm in length by 0.7 cm in diameter, and the shorter segment is 3 cm in length by 0.7 cm in diameter. Each display henderson-pink, smooth, and glistening serosa with small paratubal cyst measuring up to 0.2 cm in greatest dimension. Each display an unremarkable fimbriated end and are sectioned to reveal a pinpoint lumen. Transformer Molder sections:C1. Longer tubeC2. [place] tube [facility] 09-03-2024 CPT:51424,87579,96790
[2024-09-03] MEDS: Lidocaine 1% /Epi 1:100 (20ml) 20 ML Vial (12:04)
[2024-09-03] MEDS: Iodine/Potassium Iodide 14ML Bottle 1 DRP TOPICAL (12:04)
[2024-09-03] MEDS: FERRIC SUBSULFATE 8 GM SOLN (12:08)
[2024-09-03] MEDS: Bupivacaine 0.5% PF 10 ML VIAL (12:11)
--- NOTE | 2024-09-03 12:21 | OP.PCM_ITS ---
Operative Report (Standard) Operative Information Date of Procedure: 09/03/24 Pre-Operative Diagnosis: cervical dysplasia, Desires sterilization Post-Operative Diagnosis: same Surgery/Procedure Performed: Laparoscopic bilateral salpingectomy, LEEP loss prevention associate: Yes Geothermal Operations Manager: Dinh Singh Tasks completed by music library assistant: Opening & closing, Dissecting tissue, Removing tissue and Insert Trochanter Type of Anesthesia: General and Local RN Documented Start/Stop Times: Operation Date: 09/03/24 11:55 Case Time Into Pre-Op 09/03/24 10:40 Procedure Start Time: 12:02 Procedure Stop Time: 12:24 Select all DRAINS/GRAFTS/IMPLANTS that apply: None Estimated Blood Loss: <5cc Fluids Replaced: 500 Specimen collected: Yes Description of specimen(s) removed: cervical LEEP (cut edge 12:00) Endocervical curettings, Bilateral fallopian tubes Description of surgery: afterr informed consent was obtained patient was taken to the operating room she was placed in supine position she was given general anesthesia. She was then placed in the [facility]. At this time under sterile technique the bladder was drained approximately 200 cc of clear yellow urine was expelled. At this time rubber coated speculum was placed. Good visualization of the cervix. 10cc Lidocaine with epinephrine was injected in a circumferential fashion around the cervix performed a paracervical block. Lugalsl solution was then applied. Large alcala loop was used to perform the LEEP procedure. Endocervical curettings were collected. Next the rollerball was used for hemostasis. and Monsels placed. Specimens were sent to pathology for evaluation. Uterine manipulator was placed without difficulty. Legs then placed in parallel with the abdomen the tenaculum and the weighted speculum were removed. 2 towel clamps were placed at level of umbilicus. Marcaine was injected infraumbilical and a small incision was made. The 5 mm trocar was placed under direct visualization. CO2 gas was used to insufflate the intra-abdominal cavity. Upon inspection no gross abnormalities appreciated- the uterus tubes and ovaries appeared to be normal. At this time then the LLQ and RLQ ports were placed First Marcaine was injected and small incision was made a knife and the 5 mm trocars were placed. At this time then tubes were traced back to the fimbriated ends. Enseal was used to coagulate and ligate along mesosalpinx bilaterally until tubes removed completely. Good hemostasis was appreciated. At this time procedure was deemed complete successful. The gas was desufflated on from the intra-abdominal cavity. The trochars were removed. Skin was closed using 4-0 Monocryl in a subcutaneous fashion. Dermabond glue was placed. Instrument lap and needle counts were correct ?2. The uterine manipulator was removed. Vaginal sweep was performed it was negative. There were no complications anticipated normal postoperative course for this patient. Surgical Findings: normal tubes, ovaries and uterus Cut edge of cervical leep was 12:00 Complications Complications: No Admit VTE Documentation VTE Present on Admission: Yes VTE Mechan Device Prophylaxis: SCD's VTE Pharm Prophylaxis ordered?: No Reason prophylaxis not ordered: Treatment Not Indicated
--- NOTE | 2024-09-03 13:24 | PCM.POST.ANE ---
Anesthesia: Postop Eval I Current Vital Signs Temperature: 97 F Pulse Rate: 98 Blood Pressure: 152/87 Respiratory Rate: 18 Pulse Ox: 98 Oxygen Delivery Method: Room Air Assessment Airway patent: Yes Spontaneous unlabored respirations: Yes Mental status: Awake and Calm nausea: No Vomiting: No Anesthesia Complication: No Fluid Hydration Crystalloid volume administer (ml): 600 Total IV fluid infused: 600 Progress Note Anesthesia document: Postop Eval 1 completed: Yes
--- NOTE | 2024-09-03 13:25 | PCM.POSTANE2 ---
Anesthesia Postop Eval I Sum Anesthesia Postop Eval I Summary Anesthesia Postop Eval I Summary: Anesthesia Postop Eval I: Assessment Summary Airway patent Spontaneous unlabored respirations Mental status nausea Vomiting Anesthesia Postop Eval I: Fluid Summary Crystalloid volume administer (ml) Colloids volume administered ( ml) Blood Product volume administered (ml) Total IV fluid infused Anesthesia Postop Eval I: Summary Notes Anesthesia Complication Anesthesia Complication Comment: Post-operative progress note Anesthesia: Postop Eval II Evaluation Mental status: Awake Pain Level: 1 nausea: No Vomiting: No
--- NOTE | 2024-09-03 13:32 | PCM.POSTANE2 ---
Anesthesia Postop Eval I Sum Anesthesia Postop Eval I Summary Anesthesia Postop Eval I Summary: Anesthesia Postop Eval I: Assessment Summary Airway patent Spontaneous unlabored respirations Mental status Awake 09/03/24 13:25 nausea No 09/03/24 13:25 Vomiting No 09/03/24 13:25 Anesthesia Postop Eval I: Fluid Summary Crystalloid volume administer (ml) Colloids volume administered ( ml) Blood Product volume administered (ml) Total IV fluid infused Anesthesia Postop Eval I: Summary Notes Anesthesia Complication Anesthesia Complication Comment: Post-operative progress note Anesthesia: Postop Eval II Evaluation Mental status: Awake Pain Level: 0 nausea: No Vomiting: No
== END 2024-09-03 14:32 | disposition home or self-care (01) ==
LOC: SDC 10:11 → AC 10:12
PROVIDERS: Anesthesiology; Referring Provider Obstetrics & Gynecology; Visit Provider Obstetrics & Gynecology
PROC: (CPT 58661; principal; 2024-09-03 11:40)
PROC: 0UBC7ZZ Excision of Cervix, Via Natural or Artificial Opening (ICD-10-PCS; CPT 57522; 2024-09-03 11:40)
DX: Z30.2 Encounter for sterilization (principal); F31.9 Bipolar disorder, unspecified; F17.210 Nicotine dependence, cigarettes, uncomplicated; D06.0 Carcinoma in situ of endocervix
CPT/HCPCS: 58661; 57522; 81025; 85027; 88302; 88305; 88307; J2405